=== PATIENT | male | born 1970 | race Caucasian/White ===

== ENCOUNTER 2023-10-29 15:21 | Emergency (ER) | payer BC, SELFPAY ==
[2023-10-29 15:22] VITALS: BP 120/86
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
[2023-10-29] MEDS: TYLENOL 650 MG PO (16:14)
[2023-10-29] MEDS: MOTRIN 600 MG PO (16:15)
[2023-10-29 16:35] VITALS: BP 114/76
--- NOTE | 2023-10-29 16:35 | EDRN ---
Reviewed discharge instructions with patient. Verbalized understanding. Ambulated with steady gait to the lobby.
== END 2023-10-29 16:40 | disposition home or self-care (01) ==
LOC: EMR 15:21
PROVIDERS: EMERGENCY PHYSICIAN Emergency Medicine; FAMILY PHYSICIAN Internal Medicine
DX: S16.1XXA Strain of muscle, fascia and tendon at neck level, initial encounter (principal); S39.012A Strain of muscle, fascia and tendon of lower back, initial encounter; V89.2XXA Person injured in unspecified motor-vehicle accident, traffic, initial encounter
CPT/HCPCS: 99283

== ENCOUNTER → 2023-11-19 07:46 | Outpatient (REF) | payer OTHER, SELFPAY ==
--- NOTE | 2023-11-19 09:00 | CARDSERVLU ---
Echocardiogram with Lumason completed after protocol screening completed. Allergies verified.
Patent IV site: __rt hand___
IV site flushed with 0.9% NaCl pre and post administration.
Diluted bolus method utilized to enhance visualization of ventricular kidd.
Total volume given: ___3.0_ mL
Patient tolerated all procedures well without complications.
#24 marco placed Rt hand. Lumason given. INT d/c'd. dsg applied and pressure held.
== END ==
LOC: RCS 07:46
PROVIDERS: ATTENDING PHYSICIAN Internal Medicine; FAMILY PHYSICIAN Family Medicine
DX: I25.10 Atherosclerotic heart disease of native coronary artery without angina pectoris (principal); I10 Essential (primary) hypertension; I25.2 Old myocardial infarction
CPT/HCPCS: 93306; Q9950

== ENCOUNTER → 2024-08-25 08:04 | Outpatient (REF) | payer OTHER, SELFPAY | LOC: HWRCS 08:04 | PROVIDERS: ATTENDING PHYSICIAN Internal Medicine; FAMILY PHYSICIAN Internal Medicine | DX: I25.10 Atherosclerotic heart disease of native coronary artery without angina pectoris (principal); Z95.5 Presence of coronary angioplasty implant and graft; I25.2 Old myocardial infarction; R42 Dizziness and giddiness; I95.9 Hypotension, unspecified | CPT/HCPCS: 78452; 93017; A9500 ==